=== PATIENT | female | born 1975 | race Caucasian/White ===

== ENCOUNTER 2023-04-03 04:07 | Day surgery (SDC) | payer BC ==
[2023-03-27 16:24] VITALS: BMI 22.4
[~2023-04-03 04:07] MED LIST: CLINDAMYCIN 600 MG PREMIX BAG IVPB ONE; LIDOCAINE 1% P/F 10 MG/ML VIAL INF ONE
[2023-04-03] MEDS ORDERED: MIDAZOLAM HCL 2 MG/2 ML SINGLE DOSE VIAL ONE (13:15)
[2023-04-03] MEDS ORDERED: LIDOCAINE HCL/PF 1% SDV 5ML VIAL ONE (13:18)
[2023-04-03] MEDS ORDERED: ceFAZolin SODIUM 1 GM VIAL ONE (13:38)
[2023-04-03] MEDS ORDERED: ceFAZolin SODIUM 1 GM VIAL IVPB ONE (13:39)
[2023-04-03] MEDS ORDERED: ONDANSETRON 4 MG/2 ML VIAL ONE (13:46)
[2023-04-03] MEDS ORDERED: DEXAMETHASONE SOD PHOSPHATE 4 MG/1 ML VIAL ONE (13:46)
[2023-04-03] MEDS ORDERED: LIDOCAINE 1% P/F 10 MG/ML VIAL INF ONE (13:46)
[2023-04-03 17:03] VITALS: PULSE 68; RESP 18
[2023-04-03 17:07] VITALS: BP 101/65; TEMP 97.5
== END 2023-04-03 15:30 | disposition home or self-care (01) ==
LOC: JASU-SURG 04:07
PROVIDERS: ATTEND Surgery
PROC: 0HBT0ZX Excision of Right Breast, Open Approach, Diagnostic (ICD-10-PCS; principal; 2023-04-03 13:00)
DX: D24.1 Benign neoplasm of right breast (principal)
CPT/HCPCS: 19281; 76098-TC-FY; 81025; 88307-TC